=== PATIENT | female | born 1990 | race Asian ===

== ENCOUNTER 2025-02-22 11:43 | Emergency (ER) | payer OTHER, SELFPAY ==
[2025-02-22 11:43] VITALS: BP 84/62
--- NOTE | 2025-02-22 13:16 | ED.GENMED ---
History of Present Illness
General
Chief Complaint: Abdominal Pain
Source: patient
Exam Limitations: none
Time Seen by Provider: 02/22/25 12:51
Nursing documentation reviewed up to this point in time: agreed with
History of Present Illness
History of Present Illness:
see MDM
Past History
Past History
ED Past Medical History: Psychiatric
Social History
Tobacco: Non-smoker
Personal:
Living: with family
Review of Systems
Review of Systems
Allergies reviewed?: Yes
All Other Systems: Not applicable
Phy Exam
Physical Exam
Physical Exam:
GENERAL: Alert , in no apparent distress
EYE: pupils equal and reactive
NECK: Supple
ENT: o/p clr, mmm.
CARDIAC: Regular rate and rhythm .
LUNGS: Clear breath sounds bilaterally, no acute respiratory distress, no wheezes/rales/rhonchi
ABDOMEN: Soft, mild epigastric tendenress, no pena's sign, neg mcburney's point tendenress; , no r/g, no cvat, normal bowel sounds
NEUROLOGICAL: Alert and oriented, no focal neuro deficits
SKIN: Warm and dry, skin intact.
MUSCULOSKELETAL: No edema, well perfused. neg morris's sign
PSYCH: Normal and appropriate interaction.
Course
Orders/Labs/Results
Orders:
Orders
02/22/25 13:03
0.9% Sodium Chloride 1000 ml [Nss] 1,000 ml IV BOLUS
Acetaminophen [Tylenol] 650 mg PO NOW STA
02/22/25 13:04
US Abdomen Complete/Upper Urgent
Comment:
Reason For Exam: upper abd pain, 18 weeks preg, eval hydro, GB
02/22/25 13:20
Complete Blood Count/With Diff Urgent
Comprehensive Metabolic Panel Urgent
Lipase Urgent
02/22/25 13:58
Urinalysis Reflex To Culture Urgent
Date Specimen was Collected: 02/22/25
Time Specimen was Collected: 13:58
Urine Microscopic Reflex Cult Urgent
Urine Culture Urgent
MEME Source: U
Specimen Description:
Date Specimen was Collected: 02/22/25
Time Specimen was Collected: 13:58
02/22/25 15:15
Heart Tones ONCE
02/22/25 16:18
Urinalysis Reflex To Culture Urgent
Date Specimen was Collected: 02/22/25
Time Specimen was Collected: 16:25
Abnormal Lab Results
02/22/25 02/22/25
13:20 13:58
RBC 3.77 L 10^6/uL
(4.20-5.40)
Hgb 11.6 L g/dL
(12.0-16.0)
Hct 33.9 L %
(37.0-47.0)
Abs Immat Gran (auto) 0.1 H 10^3/uL
(0-0.05)
Absolute Neuts (auto) 9.5 H 10^3/uL
(1.4-6.5)
Absolute Lymphs (auto) 0.8 L 10^3/uL
(1.2-3.4)
Neutrophils % 87.6 H %
(42.2-75.2)
Lymphocytes % 7.3 L %
(20.5-51.1)
Sodium 134 L mmol/L
(135-145)
Creatinine 0.4 L mg/dL
(0.6-1.0)
Glucose 108 H mg/dl
(70-99)
AST 81 H U/L
(14-36)
ALT 65 H U/L
(0-35)
Leukocyte Esterase Rfl 3+ A
(Negative)
Urine WBC (Reflex) 50-60 A /HPF
(0-5)
Urine Bacteria (Reflex) Moderate A
(Negative)
Urine Albumin (Reflex) 2+ A
(Neg - Trace)
02/22/25 13:20
02/22/25 13:20
Vital Signs
Initial and Last Documented VS:
Initial Vital Signs
Temp Pulse Resp BP Pulse Ox
36.4 C 60 15 84/62 100
02/22/25 11:43 02/22/25 11:43 02/22/25 11:43 02/22/25 11:43 02/22/25 11:43
Last Documented Vital Signs
Temp Pulse Resp BP Pulse Ox
36.4 C 60 15 100/66 100
02/22/25 11:43 02/22/25 11:43 02/22/25 11:43 02/22/25 15:20 02/22/25 13:45
MDM/Problems Addressed
Differential Diagnosis Includes:
see MDM
MDM/Problems Addressed:
Note:
CHIEF COMPLAINT(S)
Sharp abdominal pain.
HISTORY OF PRESENT ILLNESS
The patient is a 34-year-old female 18 WEEKS PREG, here with upper abd pain.
She reports experiencing a sharp pain in the upper abdomen, initiating while she was at her mothers doctors appointment around 10 a.m. Initially believed it might be relieved by a bowel movement, but even after, the pain persisted. While in the car,
the pain escalated to a severity of nine out of ten, rendering her unable to drive or move comfortably. During this episode, she experienced hyperventilation, leading to tingling sensations in her hands and arms. Although the pain remains it has
been intermittent epigastirc region pain. Currently, the pain is described as a dull, aching sensation and does not radiate to the back. No history of vomiting, but there was a mild sensation of nausea following food intake, which included potatoes
and boiled eggs, approximately one hour prior to pain onset. She reported difficulty breathing when the pain was severe, but this has since improved. No prior history of gallstones, gallbladder issues, or significant gastrointestinal problems,
though she has experienced common constipation related to her . a few weeks ago she had vaginal itching, previously treated with clotrimazole intra-vaginally about three weeks ago, is noted, though no current discharge is observed.
no itching today
denies dysuria, hematuria, frequency, vaginal bleeding or leakage of fluid
SOCIAL HISTORY
Denies the use of any medications during due to concerns over safety.
REVIEW OF SYSTEMS
- Gastrointestinal: Sharp, intermittent pain in the upper abdomen, nausea, instance of diarrhea, no vomiting.
- Respiratory: Shortness of breath during severe pain, hyperventilation.
- Genitourinary: Recent vaginal itching, no discharge, no dysuria or hematuria.
- Neurological: Tingling in hands and arms during hyperventilation.
PHYSICAL EXAM
Nursing notes reviewed and vital signs reviewed.
-GENERAL: Alert , in no apparent distress
EYE: pupils equal and reactive
NECK: Supple
ENT: o/p clr, mmm.
CARDIAC: Regular rate and rhythm .
LUNGS: Clear breath sounds bilaterally, no acute respiratory distress, no wheezes/rales/rhonchi
ABDOMEN: Soft, mild epigastric tenderness, negative Pena sign, no r/g, no cvat, normal bowel sounds
NEUROLOGICAL: Alert and oriented, no focal neuro deficits
SKIN: Warm and dry, skin intact.
MUSCULOSKELETAL: No edema, well perfused. neg morris's sign
PSYCH: Normal and appropriate interaction.
PLAN
- Perform an ultrasound of the gallbladder and kidneys to assess for gallstones or kidney stones.
- Conduct blood work to assist in identifying potential underlying issues.
- Monitor the heart rate via Doppler.
- Advise against eating until further assessment is completed to rule out potential infections and anticipate possible surgical interventions.
- Offer acetaminophen (Tylenol) for pain management if the patient desires, considering her expressed safety concerns with medication use during .
- Evaluate whether additional interventions like lollipops or proton pump inhibitors may be beneficial if symptoms suggest acid reflux or the patient desires further relief from abdominal discomfort.
DIFFERENTIAL DIAGNOSIS
The Differential Diagnosis includes, in no particular order and is not limited to:
- Gallstones (Cholelithiasis)
- Kidney stones (Nephrolithiasis)
- Gastroesophageal reflux disease
- Gastritis
- Peptic ulcer disease
- Biliary colic
- Acute pancreatitis
- Urinary tract infection
- Viral gastroenteritis
- -related constipation or bowel obstruction
- Flatus-related discomfort
CARE-UPDATE
02/22/25 - 15:50
The gallbladder ultrasound shows no stones, but it is distended without signs of infection or inflammation. Suspected that a transient gallstone may have caused previous severe pain. Liver enzymes AST and ALT are slightly elevated, potentially due
to , gallstones, or viral causes. Kidney function appears normal with no indication of a kidney infection. Urine sample likely contaminated; patient advised to provide a clean sample before leaving if possible. Plan to monitor patients
response to eating and provide tonya crackers and apple juice to assess tolerance and potential trigger for pain.
1630 - PT TOLERATED PO CHALLENGE WELL
LOOKS WELL
PAIN RESOLVED
D/C HOME
Disposition:
SUMMARY OF ENCOUNTER
The patient is a 34-year-old female who is 18 weeks , presenting with severe epigastric pain occurring suddenly around 10 a.m. She experienced diarrhea, which slightly relieved the pain, but it intensified, causing tingling in her hands and
arms due to hyperventilation. She denied chest pain or shortness of breath. An hour before the pain onset, she had eaten potatoes and boiled eggs. No history of gallstones or other -related complaints was noted. On examination, she had mild
epigastric tenderness, but no Pena sign or right lower quadrant tenderness. Vital signs included a blood pressure of 100/50 mmHg, which is consistent with her usual readings, and heart tones at 160 bpm. After receiving acetaminophen, her
pain resolved, and she felt well enough to eat crackers and juice, with no recurrence of symptoms.
PLAN
- Perform ultrasound of the gallbladder, which revealed a distended gallbladder with fluid but no pericholecystic edema or wall thickening, and no gallstones.
- Blood work showed mild transient aminotransferase elevation (AST in the 80s, ALT in the 60s), normal lipase and alkaline phosphatase.
- She was advised to rest and increase follow-up with her OBGYN, with strict instructions to return immediately if symptoms worsen.
- Requested the patient to provide a clean urine sample for analysis and will communicate the results later.
INDEPENDENT REVIEW OF LABS AND INTERPRETATION OF TESTS
My independent review of the CBC indicates a reassuring white count.
My independent review of liver function tests shows mild transient aminotransferase elevation, with AST in the 80s and ALT in the 60s.
My independent interpretation of the gallbladder ultrasound shows a distended gallbladder with fluid, without pericholecystic edema or wall thickening, and no gallstones or abnormalities in the common bile duct.
FOLLOW-UP INSTRUCTIONS
Close follow-up with her OBGYN was advised, and she was given strict return precautions to seek care if she develops fever, vomiting, or worsening pain.
MEDICATION RECONCILIATION
Acetaminophen (Tylenol) administered for pain management.
MEDICAL DECISION MAKING
-Complexity of Data Reviewed: Chronic conditions affecting care include considerations related to . Differential diagnoses considered include gallstones (cholelithiasis), kidney stones (nephrolithiasis), gastroesophageal reflux disease,
gastritis, peptic ulcer disease, biliary colic, acute pancreatitis, urinary tract infection, viral gastroenteritis, -related constipation or bowel obstruction, and flatus-related discomfort.
-Data:
Category 1
My independent interpretation of the ultrasound study of the gallbladder indicates no gallstones present.
Lab tests ordered and reviewed include CBC, liver function tests, and an ultrasound study.
Category 2
Discussion with an independent medical provider, Dr. HERNANDEZ, about the management plan, who agreed with the treatment approach.
-Risk:
Consideration of Admission/Observation: Escalation of care including admission/observation was considered given the complexity and risk of the patients presenting complaint, exam findings, and/or their underlying comorbidities. However, ultimately I
feel the patient is safe for outpatient management with close follow-up. Reasoning: Work-up reassuring, does not reveal any acute life/organ-threatening processes, patients symptoms well controlled upon reevaluation, reexamination is reassuring,
vitals are stable, patient agreeable with discharge, reliable for follow-up.
DIAGNOSIS
Suspected Biliary Colic, ICD-10 Code K80.9
, 18 Weeks, Normal Progress, ICD-10 Code O26.899
*Pulse Oximetry
SaO2: 100
Oxygen Mode of Delivery: Room air
Patient hypoxic: no (100)
*Critical Care Note
Total Time (30-74mins, 75-104mins- exclusive of procedures): Not Applicable
ED Attending Note
-
Portions of this chart may have been created with voice recognition software.� Occasional wrong word or��sound alike� substitutions may have occurred due to the inherent limitations of voice recognition software.
Discharge Plan
Departure
Patient Disposition: Home (Routine Discharge)
Date of Disposition: 02/22/25
Time of Disposition: 16:23
Patient with high blood pressure during this ER visit?: No
Condition: Fair
Covid-19: Not Applicable
Discharge Problem:
Abdominal pain
Instructions: Abdominal pain in adults (DC)
Referrals:
Kenneth Escobar MD [Family Provider, Family Practice] - Follow up in 2-3 days
Activity Restrictions/Additional Instructions:
WE ARE NOT SURE THE CAUSE OF YOUR PAIN
IT COULD HAVE BEEN GAS PAIN OR STOMACH PAINS
OR POSSIBLY FROM A GALLSTONE THAT PASSED - YOUR LIVER ENZYMES WERE MINIMALLY ELEVATED BUT YOU HAD NO SIGNS OF GALLSTONES OR GALLBLADDER INFLAMMATION
IF YOU GET WORSE PAIN, FEVER, VOMITING, YOU NEED TO RETURN IMMEDIATELY
OTHERWISE PLEASE FOLLOW UP WITH YOUR OBGYNE OR YOUR FAMILY DOCTOR IN 2DAYS
WE SENT ANOTHER URINE SAMPLE BECUASE THE 1ST WAS CONTAMINATED. I WILL CALL YOU IF WE NEED TO PRESCRIBE AN ANTIBIOTIC
BLAND FOOD TODAY TOLERATED
Interventions
Interventions:
*Risk Screen - Suicide Last Done: 02/22/25 11:43
*General Assessment Last Done: 02/22/25 11:43
*Neglect/Abuse Screening Last Done: 02/22/25 11:43
*ED COVID-19 Vaccine History Last Done: 02/22/25 11:43
JH-Igshqy-Vzstlyzvqs Assessment Last Done: 02/22/25 12:52
Discharge Date and Time
Print Language: ARMENIAN
[2025-02-22] MEDS: NSS 1000 IV (13:25)
[2025-02-22] MEDS: TYLENOL 650 MG PO (13:25)
[2025-02-22 13:32] LABS: Hematocrit 33.9 % (37.0-47.0); Hemoglobin 11.6 g/dL (12.0-16.0); Mean Corp Hgb Conc. 34.2 g/dL (33.0-37.0); Mean Corpuscular Volume 89.9 fL (81.0-99.0); Nucleated Red Blood Cells % 0 %; Platelet Count 233 10^3/uL (130-400); Red Cell Dist. Width 13.2 % (11.5-14.5)
[2025-02-22 13:54] LABS: ALT (SGPT) 65 U/L (0-35); AST (SGOT) 81 U/L (14-36); Albumin 3.9 g/dl (3.5-5.0); Alkaline Phosphatase 82 U/L (38-126); Blood Urea Nitrogen 9 mg/dl (7-17); Calcium 9.1 mg/dl (8.4-10.2); Carbon Dioxide 24 mmol/L (22-30); Chloride 105 mmol/L (98-107); Glucose 108 mg/dl (70-99); Lipase 47 U/L (23-300); Potassium 4.0 mmol/L (3.5-5.1); Sodium 134 mmol/L (135-145); Total Protein 7.0 g/dl (6.3-8.2); eGFR > 60.00
[2025-02-22 14:12] LABS: Urine Character Cloudy (Clear)
[2025-02-22 14:29] LABS: Urine Squamous Cell >30 /LPF (Few)
[2025-02-22 14:32] LABS: Urine Red Blood Cell 0-2 /HPF (0-2); Urine White Cell 50-60 /HPF (0-5)
[2025-02-22 14:56] VITALS: BP 104/74
[2025-02-22 15:20] VITALS: BP 100/66
[2025-02-22 16:38] LABS: Urine Character Clear (Clear)
== END 2025-02-22 16:34 | disposition home or self-care (01) ==
LOC: EMR 11:43
PROVIDERS: Physician Assistant; EMERGENCY PHYSICIAN Emergency Medicine; FAMILY PHYSICIAN Family Medicine
DX: O26.892 Other specified pregnancy related conditions, second trimester (principal); R10.13 Epigastric pain; O26.612 Liver and biliary tract disorders in pregnancy, second trimester; K82.8 Other specified diseases of gallbladder; Z3A.18 18 weeks gestation of pregnancy
CPT/HCPCS: 99284; 96360; 76700; 80053; 81003; 81015; 83690; 85025; 87086